=== PATIENT | male | born 1985 | race Caucasian/White ===

== ENCOUNTER 2018-09-04 18:34 | Emergency (ER) | payer OTHER ==
[~2018-09-04] VITALS: Ht 175.3 cm; Wt 108.9 kg
[2018-09-04] MEDS ORDERED: IBUPROFEN 800800 M1 PO (19:52)
[2018-09-04] MEDS ORDERED: NORCO 5-325 TA1 EACH PO (19:52)
[2018-09-04 20:21] VITALS: BP 124/86
== END 2018-09-04 20:23 | disposition home or self-care (01) ==
LOC: M.ERS 18:34
DX: S42.252A Displaced fracture of greater tuberosity of left humerus, initial encounter for closed fracture (principal); J45.909 Unspecified asthma, uncomplicated; M10.9 Gout, unspecified; Z90.49 Acquired absence of other specified parts of digestive tract; F17.200 Nicotine dependence, unspecified, uncomplicated; W00.0XXA Fall on same level due to ice and snow, initial encounter; Y93.89 Activity, other specified; Y92.89 Other specified places as the place of occurrence of the external cause; Y99.8 Other external cause status

== ENCOUNTER 2020-02-08 11:29 | Emergency (ER) | payer OTHER ==
[~2020-02-08] VITALS: Ht 167.6 cm; Wt 113.4 kg
[~2020-02-08 11:29] MED LIST: IBUPROFEN 800800 M1 PO; NORCO 5-325 TA1 EACH PO
[2020-02-08] MEDS ORDERED: IBUPROFEN 600600 M1 PO (13:33)
[2020-02-08] MEDS ORDERED: NORCO 5-325 TA1 EAC2 PO (13:33)
[2020-02-08 14:01] VITALS: BP 155/102
== END 2020-02-08 14:01 | disposition home or self-care (01) ==
LOC: M.ERS 11:29
DX: M79.661 Pain in right lower leg (principal); M79.671 Pain in right foot; J45.909 Unspecified asthma, uncomplicated; M10.9 Gout, unspecified; Z90.49 Acquired absence of other specified parts of digestive tract

== ENCOUNTER → 2020-04-27 | Emergency (ER) | payer OTHER ==
[~2020-04-27] VITALS: Ht 175.3 cm; Wt 142.9 kg
[~2020-04-27] MED LIST changes: +IBUPROFEN 600600 M1 PO; +NORCO 5-325 TA1 EAC2 PO; +PERCOCET 5-3251 EACH PO; +PREDNISONE 20 M20 M1 PO
[2020-04-27 21:29] VITALS: BP 142/81
== END ==
LOC: M.ERS 20:39
DX: M10.072 Idiopathic gout, left ankle and foot (principal); M25.472 Effusion, left ankle; J45.909 Unspecified asthma, uncomplicated; Z90.49 Acquired absence of other specified parts of digestive tract

== ENCOUNTER 2020-05-05 16:41 | Emergency (ER) | payer OTHER ==
[~2020-05-05] VITALS: Ht 175.3 cm; Wt 142.9 kg
[2020-05-05 19:50] VITALS: BP 140/94
== END 2020-05-05 19:50 | disposition left against medical advice (07) ==
LOC: M.ERS 16:41
DX: R10.9 Unspecified abdominal pain (principal); R30.9 Painful micturition, unspecified; Z53.21 Procedure and treatment not carried out due to patient leaving prior to being seen by health care provider

== ENCOUNTER 2021-01-27 07:44 | Emergency (ER) | payer OTHER ==
[~2021-01-27] VITALS: Ht 175.3 cm; Wt 122.5 kg
[2021-01-27] MEDS ORDERED: ALLOPURINOL 10100 M3 PO (08:00)
[2021-01-27] MEDS ORDERED: CLEOCIN HCL300 MG PO (08:44)
[2021-01-27 08:49] VITALS: BP 154/74
== END 2021-01-27 08:50 | disposition home or self-care (01) ==
LOC: M.ERS 07:44
DX: L05.01 Pilonidal cyst with abscess (principal); M10.9 Gout, unspecified; J45.909 Unspecified asthma, uncomplicated; Z90.49 Acquired absence of other specified parts of digestive tract; Z79.899 Other long term (current) drug therapy